=== PATIENT | male | born 1935 | race Caucasian/White ===

== ENCOUNTER 2018-12-02 09:41 | Emergency (ER) | payer MEDICARE, OTHER ==
[2018-12-02] MEDS ORDERED: Acetaminophen 325 MG Tab PO ONE (09:55)
[2018-12-02 09:58] VITALS: BP 118/54
--- NOTE | 2018-12-02 10:48 | CR ---
Clinical history: AP pelvis/hips and AP/frog lateral views of the right hip 83-year-old male with pain after fall. Interpretation: Abnormal. *Acute, mildly impacted but satisfactorily apposed and anatomically aligned intertrochanteric fracture proximal right femur. (See previous day CT exam) No indication pathologic lytic or blastic bone lesion, with fracture. No sign of other pelvic or contralateral left hip fracture. No hip joint dislocation.
--- NOTE | 2018-12-05 13:54 | ER ---
SUBJECTIVE: The patient is 83-year-old male who was at his normal baseline who tripped this morning outside in his snow boots and landed on his right hip. He comes in via the ambulance for evaluation for right hip pain. He denies hitting his head. No neck pain, chest pain, or back pain. No nausea or vomiting. No loss of consciousness. No upper extremity pain. He does take aspirin. He states he is otherwise at his baseline. Has no other complaints. PAST MEDICAL HISTORY: Significant for hypertension, hyperlipidemia, depression, OA, cardiovascular disease, and glaucoma. CURRENT MEDICATIONS: Include: 1. Aspirin 81 mg p.o. daily. 2. Meclizine 25 mg p.o. daily. 3. Multivitamin p.o. daily. 4. Nifedipine 30 mg p.o. daily. 5. Nitrostat 0.4 mg p.r.n. as directed. 6. PEG 400 eyedrops 1 drop both eyes daily. 7. Simvastatin 40 mg p.o. at bedtime. 8. Lexapro 10 mg p.o. daily. 9. Atenolol 1 tablet p.o. daily. 10.Refresh optic eyedrops, 1 drop both eyes daily. 11.Nepafenac, 1 drop both eyes as directed. 12.Ofloxacin, 1 drop both eyes as directed. 13.Prednisolone, 1 drop both eyes as directed. 14.Triamterene and hydrochlorothiazide (75-50), 1 tablet p.o. daily. ALLERGIES: He denies being allergic to known medications. SOCIAL HISTORY: No tobacco, alcohol, or substance abuse. REVIEW OF SYSTEMS: Fall this morning, landed on right hip, is somewhat tender. He is able to move his legs. No closed head injury, loss of consciousness. No neck pain, chest pain, back pain, shoulder pain, upper extremity pain. No vision changes. No nausea or vomiting. No bleeding. No bowel or bladder changes. Negative except the right hip pain. OBJECTIVE: Vitals Signs: Stable. He is afebrile. Blood pressure 118/54, heart rate 75, respiratory rate 16, and oxygen is 93% on room air. General: Pleasant. No distress. Nontoxic. Appropriate. Answers all questions. Comes in by ambulance. Appears very comfortable. HEENT: Normocephalic, atraumatic. Neck: Unremarkable. No signs of trauma. Back: Atraumatic, nontender. Chest: Atraumatic, nontender. Abdomen: Soft, benign. Extremities: Upper extremities are unremarkable. Lower extremities are also not remarkable with exception of some tenderness, nonspecific, right lateral hip area. No signs of bruising or bleeding. No shortening of the leg. No internal rotation. He has good pulses. An x-ray is obtained. It does show intertrochanteric fracture of the right hip. ASSESSMENT: 1. Fall. 2. Right intertrochanteric hip fracture. PLAN: Transfer to [facility] to the care of orthopedist, Dr. Cox. [facility] /[id number]
== END 2018-12-02 11:45 ==
LOC: DL.ED 09:41
DX: S72.141A Displaced intertrochanteric fracture of right femur, initial encounter for closed fracture (principal); I10 Essential (primary) hypertension; E78.5 Hyperlipidemia, unspecified; F32.9 Major depressive disorder, single episode, unspecified; Z79.899 Other long term (current) drug therapy; Z79.82 Long term (current) use of aspirin; W01.0XXA Fall on same level from slipping, tripping and stumbling without subsequent striking against object, initial encounter
CPT/HCPCS: 73502; 99285; A9270

== ENCOUNTER 2018-12-11 19:09 | Emergency (ER) | payer MEDICARE, OTHER ==
--- NOTE | 2018-12-11 19:20 | EDM.PDOC ---
ED HPI GENERAL MEDICAL PROBLEM - General Chief Complaint: Trauma Stated Complaint: RAPID HEART RATE Time Seen by Provider: 12/11/18 19:16 Source of Information: Reports: Patient, EMS History Limitations: Reports: No Limitations - History of Present Illness INITIAL COMMENTS - FREE TEXT/NARRATIVE: EMS called to pt fall with low BP. arrived @ scene pt alert coherent denying neck pain. C-collar placed upon arrival. pt states been blacking out alot c/o pain back of head denies neck pain. no CP/SOB at present. Dr Brasher contacted and more info obtained. Pt had right hip surgery 12-02 and H/H on 12-06% . code level II=DNR/DNI. TRAUMA NOTES ARRIVAL TIME: 1915 GSC ON ARRIVAL: 15 C-COLLAR PRESENT: placed in ER GCS @ 1 HOUR: 15 OFF SPINE BOARD: none PRIMARY SURVEY @: 1915 SECONDARY SURVEY @: 1999 C-SPINE CLEARED @: 1934 C-COLLAR REMOVED @: SC BY: [place] GSC ON DISCHARGE: 15 - Related Data Allergies Allergy/AdvReac Type Severity Reaction Status Date / Time No Known Allergies Allergy Verified 07/23/14 13:36 Home Meds: Home Meds Aspirin [Mane Chewable Aspirin] 81 mg PO DAILY 06/12/14 [History] Meclizine [Antivert] 25 mg PO DAILY 06/12/14 [History] Multivit-Min/FA/Lycopene/Lut [Centrum Silver] 1 tab PO DAILY 06/12/14 [History] NIFEdipine [Procardia XL] 30 mg PO DAILY 06/12/14 [History] Nitroglycerin [Nitrostat] 0.4 mg PO ASDIRECTED PRN 06/12/14 [History] PEG 400/Hypromellose/Glycerin [Eye Drop Tears] 1 drop EYEBOTH DAILY 06/12/14 [ History] Simvastatin [Zocor] 40 mg PO BEDTIME 06/12/14 [History] Escitalopram [Lexapro] 10 mg PO DAILY 07/24/14 [History] Atenolol [Tenormin] 1 tab PO DAILY 11/07/14 [History] Carboxymethylcellulos/Glycerin [Refresh Optive Eye Drops] 1 drop EYEBOTH DAILY 11/07/14 [History] Dextran 70/Hypromellose [Artificial Tears Eye Drops] 1 drop EYEBOTH ASDIRECTED PRN 11/07/14 [History] Nepafenac [[place] 0.1% Ophth Soln] 1 drop EYEBOTH ASDIRECTED 03/25/15 [History] Ofloxacin [Ocuflox 0.3% Ophth Soln] 1 drop EYEBOTH ASDIRECTED 03/25/15 [History] prednisoLONE Acetate [Prednisolone Acetate] 1 drop EYEBOTH ATDISCHARGE 03/25/15 [History] Triamterene/Hydrochlorothiazid [Triamterene-HCTZ 75-50 MG] 1 tab PO DAILY [History] Past Medical History HEENT History: Reports: Glaucoma Cardiovascular History: Reports: CAD, High Cholesterol, Hypertension Psychiatric History: Reports: Depression Social & Family History - Family History Family Medical History: Noncontributory - Living Situation & Occupation Living situation: Reports: Single Occupation: Retired Review of Systems - Review of Systems Review Of Systems: ROS reveals no pertinent complaints other than HPI. ED EXAM, GENERAL - Physical Exam Exam: See Below Exam Limited By: No Limitations General Appearance: Alert, WD/WN, No Apparent Distress Eye Exam: Bilateral Eye: PERRL (pupils ess ER @ 4mm) Ears: Hearing Grossly Normal Throat/Mouth: Normal Voice, No Airway Compromise Head: Other (occiput tender abrasion, no gross O/B) Neck: Other (placed in collar, pt did spont moved it without c/o.) Respiratory/Chest: No Respiratory Distress, Rhonchi Cardiovascular: Regular Rate, Rhythm GI/Abdominal: Soft, Non-Tender Extremities: Other (left tib old haematoma, NV wnl) Neurological: Alert, Oriented, Normal Cognition Psychiatric: Flat Affect Skin Exam: Warm, Dry, Normal Color Lymphatic: No Adenopathy Course - Vital Signs Last Recorded V/S: Last Vital Signs Temp 37.1 C 12/11/18 23:09 Pulse 117 H 12/11/18 23:09 Resp 22 H 12/11/18 23:09 BP 95/52 L 12/11/18 23:09 Pulse Ox 92 L 12/11/18 23:09 - Orders/Labs/Meds Orders: Active Orders 24 hr Category Date Time Status EKG 12 Lead [EKG Documentation Completion] [RC] STAT Care 12/11/18 19:06 Active RED BLOOD CELLS LP [BBK] Stat Lab 12/11/18 19:30 Received TYPE AND SCREEN [BBK] Stat Lab 12/11/18 22:48 Ordered Sodium Chloride 0.9% [Normal Saline] 1,000 ml Med 12/11/18 23:03 Active IV .BOLUS Transfuse RBC [Transfuse Red Blood Cells] [COMM] Stat Oth 12/11/18 22:48 Ordered Medication Orders Sodium Chloride (Normal Saline) 1,000 mls @ 999 mls/hr IV .BOLUS ONE Stop: 12/12/18 00:03 Last Admin: 12/11/18 23:07 Dose: 999 mls/hr Labs: Laboratory Tests 12/11/18 12/11/18 12/11/18 Range/Units 19:14 19:30 19:30 WBC 12.4 H (5.0-10.0) 10^3/uL RBC 2.12 L (4.6-6.2) 10^6/uL Hgb 6.3 L* D (14.0-18.0) g/dL Hct 20.4 L* (40.0-54.0) % MCV 96.2 D (80-100) fL MCH 29.7 (27.0-34.0) pg MCHC 30.9 L (33.0-35.0) g/dL Plt Count 375 (150-450) 10^3/uL Neut % (Auto) 79.3 H (42.2-75.2) % Lymph % (Auto) 14.4 L (20.5-50.1) % [place] % (Auto) 5.6 (2-8) % Eos % (Auto) 0.5 L (1.0-3.0) % Baso % (Auto) 0.2 (0.0-1.0) % Add Manual Diff Yes Neutrophils % (Manual) 81 H (42-75) % Band Neutrophils % 6 % Lymphocytes % (Manual) 7 L (20-50) % Atypical Lymphs % 0 % Monocytes % (Manual) 4 (2-8) % Eosinophils % (Manual) 2 (1-3) % Basophils % (Manual) 0 Hypochromasia 2+ moderate Anisocytosis 2+ moderate PT (9.0-12.0) SEC INR (0.9-1.2) D-Dimer, Quantitative (0-400) ng/mL Sodium 137 (135-145) mmol/L Potassium 5.1 H (3.6-5.0) mmol/L Chloride 105 (101-111) mmol/L Carbon Dioxide 20.0 L (21.0-31.0) mmol/L Anion Gap 17.1 BUN 69 H D (7-18) mg/dL Creatinine 1.4 H (0.6-1.3) mg/dL Est Cr Clr Drug Dosing TNP Estimated GFR (MDRD) 49 BUN/Creatinine Ratio 49.28 Glucose 241 H (74-105) mg/dL POC Glucose 233 H (83-110) mg/dl Calcium 7.9 L (8.4-10.2) mg/dl Total Bilirubin 0.9 (0.2-1.0) mg/dL AST 37 (10-42) IU/L ALT 32 (10-60) IU/L Alkaline Phosphatase 86 (42-121) IU/L Troponin I < 0.02 (0.00-0.02) ng/ml Total Protein 4.9 L (6.7-8.2) g/dl Albumin 2.3 L (3.2-5.5) g/dl Globulin 2.6 Albumin/Globulin Ratio 0.88 12/11/18 12/11/18 Range/Units 19:30 19:30 WBC (5.0-10.0) 10^3/uL RBC (4.6-6.2) 10^6/uL Hgb (14.0-18.0) g/dL Hct (40.0-54.0) % MCV (80-100) fL MCH (27.0-34.0) pg MCHC (33.0-35.0) g/dL Plt Count (150-450) 10^3/uL Neut % (Auto) (42.2-75.2) % Lymph % (Auto) (20.5-50.1) % [place] % (Auto) (2-8) % Eos % (Auto) (1.0-3.0) % Baso % (Auto) (0.0-1.0) % Add Manual Diff Neutrophils % (Manual) (42-75) % Band Neutrophils % % Lymphocytes % (Manual) (20-50) % Atypical Lymphs % % Monocytes % (Manual) (2-8) % Eosinophils % (Manual) (1-3) % Basophils % (Manual) Hypochromasia Anisocytosis PT 12.0 (9.0-12.0) SEC INR 1.2 (0.9-1.2) D-Dimer, Quantitative 3650 H (0-400) ng/mL Sodium (135-145) mmol/L Potassium (3.6-5.0) mmol/L Chloride (101-111) mmol/L Carbon Dioxide (21.0-31.0) mmol/L Anion Gap BUN (7-18) mg/dL Creatinine (0.6-1.3) mg/dL Est Cr Clr Drug Dosing Estimated GFR (MDRD) BUN/Creatinine Ratio Glucose (74-105) mg/dL POC Glucose (83-110) mg/dl Calcium (8.4-10.2) mg/dl Total Bilirubin (0.2-1.0) mg/dL AST (10-42) IU/L ALT (10-60) IU/L Alkaline Phosphatase (42-121) IU/L Troponin I (0.00-0.02) ng/ml Total Protein (6.7-8.2) g/dl Albumin (3.2-5.5) g/dl Globulin Albumin/Globulin Ratio Meds: Medications Generic Name Dose Route Start Last Admin Trade Name Freq PRN Reason Stop Dose Admin Sodium Chloride 1,000 mls @ 999 mls/hr 12/11/18 23:03 12/11/18 23:07 Normal Saline IV 12/12/18 00:03 999 mls/hr .BOLUS ONE Administration Discontinued Medications Generic Name Dose Route Start Last Admin Trade Name Freq PRN Reason Stop Dose Admin Ondansetron HCl 4 mg 12/11/18 21:51 12/11/18 22:01 Zofran IV 12/11/18 21:52 4 mg ONETIME ONE Administration Ondansetron HCl 4 mg 12/11/18 23:00 12/11/18 23:06 Zofran IV 12/11/18 23:01 4 mg ONETIME ONE Administration Pantoprazole Sodium 80 mg 12/11/18 22:46 12/11/18 22:58 Protonix Iv IVPUSH 12/11/18 22:47 80 mg .BOLUS ONE Administration - Re-Assessments/Exams Free Text/Narrative Re-Assessment/Exam: 12/11/18 22:45 re-exam; pt vomited blood. 12/11/18 23:[address] [facility]is [facility] who kindly accepted pt Departure - Departure Time of Disposition: 23:15 Disposition: DC/Tfer to Acute Hospital 02 Condition: Poor Clinical Impression: Low hemoglobin, Elevated d-dimer, Status post hip surgery GI bleed Qualifiers: GI bleed type/associated pathology: unspecified gastrointestinal hemorrhage type Qualified Code(s): K92.2 - Gastrointestinal hemorrhage, unspecified Head injury Qualifiers: Encounter type: initial encounter Qualified Code(s): S09.90XA - Unspecified injury of head, initial encounter - Discharge Information Forms: Interfacility Transfer EMTALA - My Orders Last 24 Hours: My Active Orders 12/11/18 19:06 EKG 12 Lead [EKG Documentation Completion] [RC] STAT 12/11/18 19:30 RED BLOOD CELLS LP [BBK] Stat 12/11/18 22:48 TYPE AND SCREEN [BBK] Stat Transfuse RBC [Transfuse Red Blood Cells] [COMM] Stat 12/11/18 23:03 Sodium Chloride 0.9% [Normal Saline] 1,000 ml IV .BOLUS - Assessment/Plan Last 24 Hours: My Active Orders 12/11/18 19:06 EKG 12 Lead [EKG Documentation Completion] [RC] STAT 12/11/18 19:30 RED BLOOD CELLS LP [BBK] Stat 12/11/18 22:48 TYPE AND SCREEN [BBK] Stat Transfuse RBC [Transfuse Red Blood Cells] [COMM] Stat 12/11/18 23:03 Sodium Chloride 0.9% [Normal Saline] 1,000 ml IV .BOLUS
[2018-12-11 19:56] LABS: ANION GAP 17.1; CHLORIDE,CL 105 mmol/L (101-111); SODIUM,NA 137 mmol/L (135-145)
[2018-12-11] MEDS ORDERED: Ondansetron 4 MG/2 ML SDV IV ONE ×2 (21:51→23:00)
[2018-12-11] MEDS ORDERED: Pantoprazole 40 MG Vial IVPUSH ONE (22:46)
[2018-12-11] MEDS ORDERED: Sodium Chloride 0.9% 1,000 ML IV ONE (23:03)
[2018-12-12 00:20] VITALS: BP 92/44
== END 2018-12-12 00:25 ==
LOC: DL.ED 19:09
DX: K92.2 Gastrointestinal hemorrhage, unspecified (principal); S00.01XA Abrasion of scalp, initial encounter; S09.90XA Unspecified injury of head, initial encounter; I25.10 Atherosclerotic heart disease of native coronary artery without angina pectoris; E78.00 Pure hypercholesterolemia, unspecified; I10 Essential (primary) hypertension; F32.9 Major depressive disorder, single episode, unspecified; R79.1 Abnormal coagulation profile; Z98.890 Other specified postprocedural states; Z79.82 Long term (current) use of aspirin; Z79.899 Other long term (current) drug therapy; W18.30XA Fall on same level, unspecified, initial encounter
CPT/HCPCS: 36415; 36430; 70450; 71045; 72125; 80053; 82962; 84484; 85025; 85379; 85610; 86850; 86900; 86901; 86920; 86922; 93005; 93970; 96361; 96374; 96375; 96376; 99285; C9113; J2405; J7030; P9016

== ENCOUNTER 2019-06-18 07:06 | Emergency (ER) | payer MEDICARE, OTHER ==
--- NOTE | 2019-06-18 07:17 | EDM.PDOC ---
"ED HPI GENERAL MEDICAL PROBLEM - General Chief Complaint: Lower Extremity Injury/Pain Stated Complaint: AMBULANCE Time Seen by Provider: 06/18/19 07:17 Source of Information: Reports: Patient, EMS, Old Records, RN, RN Notes Reviewed History Limitations: Reports: No Limitations - History of Present Illness INITIAL COMMENTS - FREE TEXT/NARRATIVE: Pt arrives to ER from the [facility] with c/o severe pain in the left hip area. Pt states he woke with the pain this morning and denies any recent falls, injury, fevers, dysuria, or abdominal pain. He describes the pain as a severe constant ache in the left hip from the low back and left buttock and radiates to the knee. Onset: Today Duration: Constant Location: Reports: Back, Upper Extremity, Left Quality: Reports: Ache Severity: Severe Improves with: Reports: None Worsens with: Reports: Movement Context: Denies: Activity, Trauma Associated Symptoms: Reports: No Other Symptoms Left Hip Pain Score (Numeric/FACES): 10 - Related Data Allergies Allergy/AdvReac Type Severity Reaction Status Date / Time No Known Allergies Allergy Verified 06/18/19 07:41 Home Meds: Home Meds Aspirin [Mane Chewable Aspirin] 81 mg PO DAILY 06/12/14 [History] Meclizine [Antivert] 25 mg PO DAILY 06/12/14 [History] Multivit-Min/FA/Lycopene/Lut [Centrum Silver] 1 tab PO DAILY 06/12/14 [History] Nitroglycerin [Nitrostat] 0.4 mg PO ASDIRECTED PRN 06/12/14 [History] PEG 400/Hypromellose/Glycerin [Eye Drop Tears] 1 drop EYEBOTH DAILY 06/12/14 [ History] Simvastatin [Zocor] 40 mg PO BEDTIME 06/12/14 [History] Omeprazole 20 mg PO DAILY 06/18/19 [History] Potassium Chloride [Klor-Con M20] 20 meq PO BID 06/18/19 [History] Sertraline [Zoloft] 25 mg PO DAILY 06/18/19 [History] Past Medical History HEENT History: Reports: Glaucoma Cardiovascular History: Reports: CAD, High Cholesterol, Hypertension Gastrointestinal History: Reports: GI Bleed Musculoskeletal History: Reports: Arthritis, Fracture (Right hip) Psychiatric History: Reports: Depression - Past Surgical History GI Surgical History: Reports: EGD Musculoskeletal Surgical History: Reports: Hip Replacement (Right) Social & Family History - Family History Family Medical History: Noncontributory - Living Situation & Occupation Living situation: Reports: Single Occupation: Retired Review of Systems - Review of Systems Review Of Systems: ROS reveals no pertinent complaints other than HPI. ED EXAM, GENERAL - Physical Exam Exam: See Below Exam Limited By: No Limitations General Appearance: Alert, No Apparent Distress, Other (Frail elderly appearin male) Eye Exam: Bilateral Eye: Normal Inspection Nose: Normal Inspection Throat/Mouth: Normal Inspection Head: Atraumatic, Normocephalic Neck: Normal Inspection, Full Range of Motion Respiratory/Chest: No Respiratory Distress, Lungs Clear, No Accessory Muscle Use , Chest Non-Tender, Decreased Breath Sounds Cardiovascular: Regular Rate, Rhythm, No Edema, Other (See steam box hand of pedal pulses/doppler.) GI/Abdominal: Normal Bowel Sounds, Soft, Non-Tender, No Distention Back Exam: Decreased Range of Motion (lumbar, chronic/stable per pt), Paraspinal Tenderness (mild a lumbar). No: CVA Tenderness (L), CVA Tenderness ( R), Vertebral Tenderness Extremities: No Pedal Edema, Normal Capillary Refill, Leg Pain (Left hip, thigh , knee with no visible swelling, bruising, erythema, increased warmth, or deformity. The skin is intact.), Limited Range of Motion (Left hip and knee.). No: Joint Swelling, Frances's Sign, Mottled, Pallor Neurological: Alert, Oriented, CN II-XII Intact, Normal Cognition, No Motor/ Sensory Deficits Psychiatric: Normal Affect, Normal Mood Skin Exam: Warm, Dry, Intact, Normal Color, No Rash Course - Vital Signs Last Recorded V/S: Last Vital Signs Temp 99.4 F 06/18/19 08:26 Pulse 93 06/18/19 08:26 Resp 20 06/18/19 08:26 BP 151/64 H 06/18/19 08:26 Pulse Ox 95 06/18/19 08:26 - Orders/Labs/Meds Orders: Active Orders 24 hr Category Date Time Status Knee 3V Lt [CR] Urgent Exams 06/18/19 07:21 Taken Lumbar Spine wo Cont [CT] Urgent Exams 06/18/19 07:22 Taken Pelvis wo Cont [CT] Urgent Exams 06/18/19 07:22 Taken Meds: Medications Discontinued Medications Generic Name Dose Route Start Last Admin Trade Name Merry PRN Reason Stop Dose Admin Hydrocodone Bitart/Acetaminophen 1 tab 06/18/19 07:20 06/18/19 07:28 [place] 325-5 Mg PO 06/18/19 07:21 1 tab ONETIME ONE Administration - Radiology Interpretation Free Text/Narrative:: [facility] Final Radiology Report Call: [phone] assistance Online chat: [email or web address] Name: ASIYA WRIGHT Age: 83Years M Date: 06/18/2019 SSN: -- : [id number] Study: XR KNEE 3 VIEWS LEFT Requesting Physician: EMILE IZQUIERDO Images: [id number] Addl Studies: Provided Clinical History: Contrast: Contrast Medium: Contrast Amount: Contrast Method: CONFIDENTIALITY STATEMENT This report is intended only for use by the referring physician, and only in accordance with law. If you received this in error, call [phone]. Page 1 of 1 PROCEDURE INFORMATION: Exam: XR Left Knee Exam date and time: 06/18/2019 7:36 AM Clinical history: 83 years old, male; Pain; Knee; Left TECHNIQUE: Imaging protocol: XR Left knee. Views: 3 views. COMPARISON: No relevant prior studies available. FINDINGS: Bones/joints: There is tricompartmental arthritic changes as manifested by joint space narrowing and marginal osteophytes. The most severe narrowing is at the medial joint compartment of the knee. Chondrocalcinosis of the lateral meniscus. Soft tissues: Multiple surgical clips Vasculature: The vasculature demonstrates diffuse moderate atherosclerotic calcification. IMPRESSION: 1. There is tricompartmental arthritic changes as manifested by joint space narrowing and marginal osteophytes. 2. Chondrocalcinosis of the lateral meniscus. Thank you for allowing us to participate in the care of your patient. Dictated and Authenticated by: Jason Chan MD 06/18/2019 8:29 AM Central Time ([place] & [place]) [facility] Final Radiology Report Call: [phone] assistance Online chat: [email or web address] Name: ASIYA WRIGHT Age: 83Years M Date: 06/18/2019 SSN: -- : [id number] Study: CT SPINE LUMBAR WO Requesting Physician: EMILE IZQUIERDO Images: [id number] Addl Studies: Provided Clinical History: Contrast: Without Contrast Medium: Contrast Amount: Contrast Method: Page 1 of 2 PROCEDURE INFORMATION: Exam: CT Lumbar Spine Without Contrast Exam date and time: 06/18/2019 7:34 AM Clinical history: 83 years old, male; Low back pain TECHNIQUE: Imaging protocol: Computed tomography images of the lumbar spine without contrast. Radiation optimization: All CT scans at this facility use at least one of these dose optimization techniques: automated exposure control; mA and/or kV adjustment per patient size (includes targeted exams where dose is matched to clinical indication); or iterative reconstruction. COMPARISON: No relevant prior studies available. FINDINGS: Vertebrae: Superior endplate compression fracture at the L1 vertebra with loss of 30% of the height of this vertebra. Grade 1 retrolisthesis of L2 on L3. A Discs/Spinal canal/Neural foramina: Severe narrowing of the L2-L3 and L4-5 disc spaces with near-total loss of the disc spaces. Moderate to severe narrowing of the L3-L4 disc space with associated vacuum phenomena. Bilateral neuroforaminal narrowing. No disc protrusion or extrusion appreciated. Gallbladder and bile ducts: The patient is status post cholecystectomy. Vasculature: The vasculature demonstrates diffuse moderate atherosclerotic calcification. Soft tissues: Unremarkable. IMPRESSION: 1. Superior endplate compression fracture at the L1 vertebra with loss of 30% of the height of this vertebra. 2. Severe narrowing of the L2-L3 and L4-5 disc spaces with near-total loss of the disc spaces. 3. Moderate to severe narrowing of the L3-L4 disc space with associated vacuum phenomena. ASIYA WRIGHT | Final Radiology Report CONFIDENTIALITY STATEMENT This report is intended only for use by the referring physician, and only in accordance with law. If you received this in error, call [phone]. Page 2 of 2 4. No disc protrusion or extrusion appreciated. Thank you for allowing us to participate in the care of your patient. Dictated and Authenticated by: Jason Chan MD 06/18/2019 8:34 AM Central Time ([place] & [place]) [facility] Final Radiology Report Call: [phone] assistance Online chat: [email or web address] Name: ASIYA WRIGHT Age: 83Years M Date: 06/18/2019 SSN: -- : [id number] Study: CT PELVIS WO Requesting Physician: EMILE IZQUIERDO Images: [id number] Addl Studies: Provided Clinical History: Contrast: Without Contrast Medium: Contrast Amount: Contrast Method: Page 1 of 2 PROCEDURE INFORMATION: Exam: CT Pelvis without contrast; Skeletal Exam date and time: 06/18/2019 7:34 AM Clinical history: 83 years old, male; Pelvic pain TECHNIQUE: Imaging protocol: Computed tomography images of the pelvis without contrast. Exam focused on the skeletal structures. Radiation optimization: All CT scans at this facility use at least one of these dose optimization techniques: automated exposure control; mA and/or kV adjustment per patient size (includes targeted exams where dose is matched to clinical indication); or iterative reconstruction. COMPARISON: No relevant prior studies available. FINDINGS: Vasculature: The vasculature demonstrates diffuse moderate atherosclerotic calcification. Bones/joints: There is evidence of degenerative disc disease at the lower lumbar spine. Mild degenerative changes at the SI joints bilaterally. Status post right proximal femoral ORIF. No significant narrowing of the hip joint space. No large marginal osteophytes or subchondral cystic changes are present. No displaced fracture or dislocation. Soft tissues: Unremarkable. IMPRESSION: 1. No acute findings 2. Mild degenerative changes at the SI joints bilaterally. Thank you for allowing us to participate in the care of your patient. Dictated and Authenticated by: Jason Chan MD ASIYA WRIGHT | Final Radiology Report CONFIDENTIALITY STATEMENT This report is intended only for use by the referring physician, and only in accordance with law. If you received this in error, call [phone]. Page 2 of 2 06/18/2019 8:36 AM Central Time ([place] & [place]) - Re-Assessments/Exams Free Text/Narrative Re-Assessment/Exam: 06/18/19 08:54 I do not think the L1 compression fracture is acute, as the pt denies any recent falls or injuries, and is non-tender overlying the L1 region to palpation. He did have a fall back in November of 2018 resulting in a right hip fracture, and may have sustained a compression fracture at that or some other time. Departure - Departure Time of Disposition: 08:56 Disposition: Home, Self-Care 01 Condition: Fair Clinical Impression: Acute left lumbar radiculopathy, Tricompartment osteoarthritis of left knee, DDD (degenerative disc disease), lumbar Closed compression fracture of L1 vertebra Qualifiers: Encounter type: sequela Qualified Code(s): S32.010S - Wedge compression fracture of first lumbar vertebra, sequela - Discharge Information *PRESCRIPTION DRUG MONITORING PROGRAM REVIEWED*: No *COPY OF PRESCRIPTION DRUG MONITORING REPORT IN PATIENT GLORIA: No Instructions: Lumbosacral Radiculopathy, Osteoarthritis, Spinal Compression Fracture Forms: ED Department Discharge Additional Instructions: Rx: Hydrocodone APAP 5mg/325mg *Drink plenty of water or juice, and use a stool softener or prunes to avoid constipation while taking the pain medication. Rx: Decadron 4mg Use a walker. Follow up in clinic with your primary doctor this week for recheck. - My Orders Last 24 Hours: My Active Orders 06/18/19 07:21 Knee 3V Lt [CR] Urgent 06/18/19 07:22 Lumbar Spine wo Cont [CT] Urgent Pelvis wo Cont [CT] Urgent - Assessment/Plan Last 24 Hours: My Active Orders 06/18/19 07:21 Knee 3V Lt [CR] Urgent 06/18/19 07:22 Lumbar Spine wo Cont [CT] Urgent Pelvis wo Cont [CT] Urgent"
[2019-06-18] MEDS ORDERED: Acetaminophen/HYDROcodone 325-5 MG Tab PO ONE (07:20)
[2019-06-18 08:27] VITALS: BP 151/64; PULSE 93
[2019-06-18] MEDS ORDERED: Dexamethasone 4 MG Tab PO ONE (08:57)
== END 2019-06-18 09:28 | disposition home or self-care (01) ==
LOC: DL.ED 07:06
DX: M51.16 Intervertebral disc disorders with radiculopathy, lumbar region (principal); M17.12 Unilateral primary osteoarthritis, left knee; M48.56XA Collapsed vertebra, not elsewhere classified, lumbar region, initial encounter for fracture; F32.9 Major depressive disorder, single episode, unspecified; I10 Essential (primary) hypertension; E78.00 Pure hypercholesterolemia, unspecified; H40.9 Unspecified glaucoma; I25.10 Atherosclerotic heart disease of native coronary artery without angina pectoris; Z79.899 Other long term (current) drug therapy; Z79.82 Long term (current) use of aspirin
CPT/HCPCS: 72131; 72192; 73562; 99284; A9270; J8540

== ENCOUNTER 2019-09-07 17:50 | Emergency (ER) | payer MEDICARE, OTHER ==
[2019-09-07] MEDS ORDERED: Sodium Chloride 0.9% 10 ML Syringe FLUSH PRN (17:57)
[2019-09-07 18:06] VITALS: BP 188/74; PULSE 87
--- NOTE | 2019-09-07 18:18 | EDM.PDOC ---
<Bree Corbin - Last Filed: 09/07/19 19:11> ED HPI GENERAL MEDICAL PROBLEM - General Chief Complaint: General Stated Complaint: UNKNOWN Time Seen by Provider: 09/07/19 18:18 Source of Information: Reports: Patient, Family, RN, RN Notes Reviewed History Limitations: Reports: Altered Mental Status - History of Present Illness INITIAL COMMENTS - FREE TEXT/NARRATIVE: patient presents to ER from assisted living where he lives with his spouse. Patient brought to the ER by his grand daughter. Granddaughter states the patient has been increasingly confused with today being the worst. granddaughter states the patient has not been himself since Wednesday. Granddaughter states the patient was seen by his primary care provider on Wednesday , and she thinks the liver enzymes were elevated at that time. Patient was referred to see GI, but appointment is not until September. Patient states he has somewhat of a headache at this time. Patient alert, oriented to person, place, month but not year or president. Onset: Gradual - Related Data Allergies Allergy/AdvReac Type Severity Reaction Status Date / Time No Known Allergies Allergy Verified 06/18/19 07:41 Home Meds: Home Meds Aspirin [Mane Chewable Aspirin] 81 mg PO DAILY 06/12/14 [History] Meclizine [Antivert] 25 mg PO DAILY 06/12/14 [History] Multivit-Min/FA/Lycopene/Lut [Centrum Silver] 1 tab PO DAILY 06/12/14 [History] Nitroglycerin [Nitrostat] 0.4 mg PO ASDIRECTED PRN 06/12/14 [History] PEG 400/Hypromellose/Glycerin [Eye Drop Tears] 1 drop EYEBOTH DAILY 06/12/14 [ History] Simvastatin [Zocor] 40 mg PO BEDTIME 06/12/14 [History] Omeprazole 20 mg PO DAILY 06/18/19 [History] Potassium Chloride [Klor-Con M20] 20 meq PO BID 06/18/19 [History] Sertraline [Zoloft] 25 mg PO DAILY 06/18/19 [History] Past Medical History HEENT History: Reports: Glaucoma Cardiovascular History: Reports: CAD, High Cholesterol, Hypertension Gastrointestinal History: Reports: GI Bleed Genitourinary History: Reports: Chronic Renal Insuffiency Musculoskeletal History: Reports: Arthritis, Fracture Psychiatric History: Reports: Depression Endocrine/Metabolic History: Reports: Other (See Below) Other Endocrine/Metabolic History: neuroendocrine carcinoma of the pancreas Oncologic (Cancer) History: Reports: Pancreatic, Prostate - Past Surgical History GI Surgical History: Reports: EGD Musculoskeletal Surgical History: Reports: Hip Replacement Social & Family History - Family History Family Medical History: Noncontributory - Tobacco Use Smoking Status *Q: Never Smoker - Caffeine Use Caffeine Use: Reports: None - Recreational Drug Use Recreational Drug Use: No - Living Situation & Occupation Living situation: Reports: Single Occupation: Retired ED ROS GENERAL - Review of Systems Review Of Systems: Comprehensive ROS is negative, except as noted in HPI. ED EXAM, GENERAL - Physical Exam Exam: See Below Exam Limited By: Altered Mental Status General Appearance: Alert, WD/WN, No Apparent Distress Eye Exam: Bilateral Eye: EOMI, Normal Inspection Ears: Normal External Exam, Hearing Grossly Normal Nose: Normal Inspection Throat/Mouth: Normal Inspection, Normal Voice, No Airway Compromise Head: Atraumatic, Normocephalic Neck: Normal Inspection, Supple, Non-Tender, Full Range of Motion Respiratory/Chest: No Respiratory Distress, Normal Breath Sounds, No Accessory Muscle Use, Chest Non-Tender, Crackles (left base) Cardiovascular: Normal Peripheral Pulses, Regular Rate, Rhythm, No Edema, No Gallop, No JVD, No Murmur, No Rub Peripheral Pulses: 2+: Radial (L), Radial (R) GI/Abdominal: Normal Bowel Sounds, Non-Tender, Distended (Male) Exam: Deferred Rectal (Males) Exam: Deferred Back Exam: Normal Inspection, Full Range of Motion, NT Extremities: Normal Inspection, Normal Range of Motion, Non-Tender, Normal Capillary Refill, No Pedal Edema Neurological: Alert, CN II-XII Intact, No Motor/Sensory Deficits, Disoriented, Memory Loss Recent Events Psychiatric: Normal Affect, Normal Mood Skin Exam: Warm, Dry, Intact, Normal Color, No Rash Lymphatic: No Adenopathy Course - Vital Signs Last Recorded V/S: Last Vital Signs Temp 37.3 C 09/07/19 17:57 Pulse 87 09/07/19 17:57 Resp 18 09/07/19 17:57 BP 188/74 H 09/07/19 17:57 Pulse Ox 99 09/07/19 17:57 - Orders/Labs/Meds Orders: Active Orders 24 hr Category Date Time Status Peripheral IV Care [RC] . DIRECTED Care 09/07/19 17:57 Active Sodium Chloride 0.9% [Saline Flush] Med 09/07/19 17:57 Active 10 ml FLUSH ASDIRECTED PRN Peripheral IV Insertion Adult [OM.PC] Stat Oth 09/07/19 17:56 Ordered Medication Orders Sodium Chloride (Saline Flush) 10 ml FLUSH ASDIRECTED PRN PRN Reason: Keep Vein Open Last Admin: 09/07/19 18:33 Dose: 10 ml Labs: Laboratory Tests 09/07/19 09/07/19 09/07/19 Range/Units 18:05 18:05 18:05 WBC 13.0 H (5.0-10.0) 10^3/uL RBC 4.32 L (4.6-6.2) 10^6/uL Hgb 12.6 L D (14.0-18.0) g/dL Hct 38.2 L (40.0-54.0) % MCV 88.4 D (80-100) fL MCH 29.2 (27.0-34.0) pg MCHC 33.0 (33.0-35.0) g/dL Plt Count 264 D (150-450) 10^3/uL Neut % (Auto) 81.6 H (42.2-75.2) % Lymph % (Auto) 7.3 L (20.5-50.1) % [place] % (Auto) 9.3 H (2-8) % Eos % (Auto) 1.6 (1.0-3.0) % Baso % (Auto) 0.2 (0.0-1.0) % PT 11.6 (9.0-12.0) SEC INR 1.1 (0.9-1.2) Sodium 130 L (135-145) mmol/L Potassium 3.9 (3.6-5.0) mmol/L Chloride 96 L (101-111) mmol/L Carbon Dioxide 25.0 (21.0-31.0) mmol/L Anion Gap 12.9 BUN 23 H D (7-18) mg/dL Creatinine 0.8 (0.6-1.3) mg/dL Est Cr Clr Drug Dosing 54.55 mL/min Estimated GFR (MDRD) > 60 BUN/Creatinine Ratio 28.75 Glucose 179 H (74-105) mg/dL Calcium 8.5 (8.4-10.2) mg/dl Total Bilirubin 0.7 (0.2-1.0) mg/dL AST 24 (10-42) IU/L ALT 31 (10-60) IU/L Alkaline Phosphatase 429 H (42-121) IU/L Ammonia (11-35) umol/L Total Protein 6.5 L (6.7-8.2) g/dl Albumin 3.5 (3.2-5.5) g/dl Globulin 3.0 Albumin/Globulin Ratio 1.17 Amylase 85 (28-100) U/L Lipase 86 H (22-51) U/L Urine Color (YELLOW) Urine Appearance (CLEAR) Urine pH (5.0-9.0) Ur Specific [place] (1.005-1.030) Urine Protein (NEGATIVE) Urine Glucose (UA) (NEGATIVE) Urine Ketones (NEGATIVE) Urine Occult Blood (NEGATIVE) Urine Nitrite (NEGATIVE) Urine Bilirubin (NEGATIVE) Urine Urobilinogen (0.2-1.0) mg/dL Ur Leukocyte Esterase (NEGATIVE) Urine RBC /HPF Urine WBC (0-5/HPF) /HPF Ur Epithelial Cells (NOT SEEN) /HPF Urine Bacteria (0-FEW/HPF) /HPF Urine Mucus (NOT SEEN) /LPF 09/07/19 09/07/19 Range/Units 18:05 19:56 WBC (5.0-10.0) 10^3/uL RBC (4.6-6.2) 10^6/uL Hgb (14.0-18.0) g/dL Hct (40.0-54.0) % MCV (80-100) fL MCH (27.0-34.0) pg MCHC (33.0-35.0) g/dL Plt Count (150-450) 10^3/uL Neut % (Auto) (42.2-75.2) % Lymph % (Auto) (20.5-50.1) % [place] % (Auto) (2-8) % Eos % (Auto) (1.0-3.0) % Baso % (Auto) (0.0-1.0) % PT (9.0-12.0) SEC INR (0.9-1.2) Sodium (135-145) mmol/L Potassium (3.6-5.0) mmol/L Chloride (101-111) mmol/L Carbon Dioxide (21.0-31.0) mmol/L Anion Gap BUN (7-18) mg/dL Creatinine (0.6-1.3) mg/dL Est Cr Clr Drug Dosing mL/min Estimated GFR (MDRD) BUN/Creatinine Ratio Glucose (74-105) mg/dL Calcium (8.4-10.2) mg/dl Total Bilirubin (0.2-1.0) mg/dL AST (10-42) IU/L ALT (10-60) IU/L Alkaline Phosphatase (42-121) IU/L Ammonia 29 (11-35) umol/L Total Protein (6.7-8.2) g/dl Albumin (3.2-5.5) g/dl Globulin Albumin/Globulin Ratio Amylase (28-100) U/L Lipase (22-51) U/L Urine Color Yellow (YELLOW) Urine Appearance Slightly cloudy (CLEAR) Urine pH 5.5 (5.0-9.0) Ur Specific [place] 1.025 (1.005-1.030) Urine Protein Trace H (NEGATIVE) Urine Glucose (UA) Negative (NEGATIVE) Urine Ketones Negative (NEGATIVE) Urine Occult Blood Moderate H (NEGATIVE) Urine Nitrite Negative (NEGATIVE) Urine Bilirubin Negative (NEGATIVE) Urine Urobilinogen 0.2 (0.2-1.0) mg/dL Ur Leukocyte Esterase Negative (NEGATIVE) Urine RBC 75-100 H /HPF Urine WBC 0-5 (0-5/HPF) /HPF Ur Epithelial Cells Rare (NOT SEEN) /HPF Urine Bacteria Rare (0-FEW/HPF) /HPF Urine Mucus Rare (NOT SEEN) /LPF Meds: Medications Generic Name Dose Route Start Last Admin Trade Name Freq PRN Reason Stop Dose Admin Sodium Chloride 10 ml 09/07/19 17:57 09/07/19 18:33 Saline Flush FLUSH 10 ml ASDIRECTED PRN Administration Keep Vein Open Discontinued Medications Generic Name Dose Route Start Last Admin Trade Name Freq PRN Reason Stop Dose Admin Iopamidol 100 ml 09/07/19 18:46 09/07/19 19:44 Isovue-300 (61%) IVPUSH 09/07/19 18:47 75 ml ONETIME ONE Administration Departure - Departure Disposition: DC/Tfer to [facility] 02 Clinical Impression: Confusion, Khoa's syndrome Leukocytosis, unspecified Qualifiers: Leukocytosis type: other Qualified Code(s): D72.828 - Other elevated white blood cell count - Discharge Information Forms: Interfacility Transfer EMTALA Sepsis Event Note - Evaluation Sepsis Screening Result: No Definite Risk - Focused Exam Vital Signs: Vital Signs Temp Pulse Resp BP Pulse Ox 09/07/19 17:57 37.3 C 87 18 188/74 H 99 Date Exam was Performed: 09/07/19 Time Exam was Performed: 19:11 <Jesse Woodson - Last Filed: 09/07/19 21:33> Course - Re-Assessments/Exams Free Text/Narrative Re-Assessment/Exam: 09/07/19 21:[address] Nolasco @ who kindly accepted pt. Departure - Departure Time of Disposition: 21:30 Condition: Fair Sepsis Event Note - Focused Exam Date Exam was Performed: 09/07/19 Time Exam was Performed: 21:29
[2019-09-07 18:32] LABS: ANION GAP 12.9; CHLORIDE,CL 96 mmol/L (101-111); SODIUM,NA 130 mmol/L (135-145)
[2019-09-07] MEDS ORDERED: Iopamidol 612 MG/ML 100 ML Bottle IVPUSH ONE (18:46)
== END 2019-09-07 22:45 ==
LOC: DL.ED 17:50
DX: K56.699 Other intestinal obstruction unspecified as to partial versus complete obstruction (principal); D72.828 Other elevated white blood cell count; R41.0 Disorientation, unspecified; I12.9 Hypertensive chronic kidney disease with stage 1 through stage 4 chronic kidney disease, or unspecified chronic kidney disease; N18.9 Chronic kidney disease, unspecified; Z79.82 Long term (current) use of aspirin
CPT/HCPCS: 36415; 70450; 74177; 80053; 81001; 82140; 82150; 83690; 85025; 85610; 99284; 99285-25; Q9967

== ENCOUNTER 2021-02-09 19:10 | Emergency (ER) | payer MEDICARE, OTHER ==
[2021-02-09] MEDS ORDERED: Sodium Chloride 0.9% 10 ML Syringe FLUSH PRN (19:26)
--- NOTE | 2021-02-09 19:49 | EDM.PDOC ---
ED HPI GENERAL MEDICAL PROBLEM - General Chief Complaint: Head Injury Stated Complaint: FELL HIT HIS HEAD Time Seen by Provider: 02/09/21 19:30 Source of Information: Reports: Patient History Limitations: Reports: No Limitations - History of Present Illness INITIAL COMMENTS - FREE TEXT/NARRATIVE: Patient comes emergency department today from the [facility] here in town with complaints of a fall and diarrhea. According to the BLOW OFF WORKER that takes care of this patient on a regular basis the patient has had quite a few loose stools over the past couple of days. He does have some chronic diarrhea on a regular basis which she takes Imodium for. Really not much more diarrhea than usual. Today when he was in the bathroom he felt a little "woozy" fell striking his head against the wall and fell against the ground. There was no loss conscious. He denies any head neck or back pain. He denies any visual acuity changes. Prior to the fall he does complain of some wooziness but no vertigo chest pain palpitation shortness of breath. He did not pass out. He has had no cough or congestion. No fever no chills. No abdominal pain nausea or vomiting. He has had some diarrhea but this is chronic for him. No hematuria dysuria or urinary frequency. He does have his Covid vaccine. Left Head Pain Score (Numeric/FACES): 3 - Related Data Allergies Allergy/AdvReac Type Severity Reaction Status Date / Time No Known Allergies Allergy Verified 02/09/21 20:21 Home Meds: Home Meds Aspirin [Mane Chewable Aspirin] 81 mg PO DAILY 06/12/14 [History] Meclizine [Antivert] 25 mg PO DAILY 06/12/14 [History] Multivit-Min/FA/Lycopene/Lut [Centrum Silver] 1 tab PO DAILY 06/12/14 [History] Nitroglycerin [Nitrostat] 0.4 mg PO ASDIRECTED PRN 06/12/14 [History] PEG 400/Hypromellose/Glycerin [Eye Drop Tears] 1 drop EYEBOTH DAILY 06/12/14 [History] Simvastatin [Zocor] 40 mg PO BEDTIME 06/12/14 [History] Omeprazole 20 mg PO DAILY 06/18/19 [History] Potassium Chloride [Klor-Con M20] 20 meq PO BID 06/18/19 [History] Sertraline [Zoloft] 25 mg PO DAILY 06/18/19 [History] Past Medical History HEENT History: Reports: Glaucoma Cardiovascular History: Reports: CAD, High Cholesterol, Hypertension Gastrointestinal History: Reports: GI Bleed Genitourinary History: Reports: Chronic Renal Insuffiency Musculoskeletal History: Reports: Arthritis, Fracture Psychiatric History: Reports: Depression Endocrine/Metabolic History: Reports: Other (See Below) Other Endocrine/Metabolic History: neuroendocrine carcinoma of the pancreas Oncologic (Cancer) History: Reports: Pancreatic, Prostate - Past Surgical History GI Surgical History: Reports: EGD Musculoskeletal Surgical History: Reports: Hip Replacement Social & Family History - Family History Family Medical History: No Pertinent Family History - Caffeine Use Caffeine Use: Reports: None - Living Situation & Occupation Living situation: Reports: Single Occupation: Retired ED ROS GENERAL - Review of Systems Review Of Systems: Comprehensive ROS is negative, except as noted in HPI. ED EXAM, HEAD INJURY - Physical Exam Exam: See Below Exam Limited By: No Limitations General Appearance: Alert, WD/WN, No Apparent Distress Head: Normocephalic, Facial Ecchymosis (Patient has some bruising on the left lateral eyebrow. No subcutaneous emphysema bony deformities.). No: Scalp Lacerations, Scalp Swelling, Scalp Abrasions, Scalp Ecchymosis, Scalp Hematoma, Scalp Tenderness, Active Bleeding, Facial Lacerations, Facial Swelling, Sinus Tenderness, Facial Tenderness, Raccoon Eyes Nexus Criteria: Posterior, Midline Cervical Tenderness, Evidence of Intoxication, Altered Level of Consciousness, Focal Neurological Deficit, Painful Distraction Injuries Eyes: Bilateral Eye: EOMI, PERRL Ears: Normal External Exam, Normal TMs Nose: Normal Inspection, Normal Mucousa Throat/Mouth: Normal Inspection, Normal Lips, Normal Teeth, Normal Oropharynx, Normal Voice Neck: Non-Tender, Full Range of Motion, Normal Alignment Respiratory: No Respiratory Distress, Lungs Clear, Normal Breath Sounds, No Accessory Muscle Use, Chest Non-Tender Cardiovascular: Normal Peripheral Pulses, Regular Rate, Rhythm GI/Abdominal Exam: Normal Bowel Sounds, Soft, Non-Tender, No Abnormal Bruit (Male) Exam: Deferred Rectal (Males) Exam: Deferred Back Exam: Normal Inspection, Full Range of Motion Extremities: Normal Inspection, Normal Range of Motion, No Pedal Edema, Normal Capillary Refill Neurologic: export administrator II-XII nml As Tested, No Motor/Sensory Deficits, Alert, Normal Mood/Affect, Oriented x 3 Skin: Normal Color, Warm/Dry - [place] Coma Score Best Eye Response ([place]): (4) Open Spontaneously Best Verbal Response (Sandie): (5) Oriented Best Motor Response (Sandie): (6) Obeys Commands Sandie Total: 15 Course - Vital Signs Last Recorded V/S: Last Vital Signs Temp 98.2 F 02/09/21 19:56 Pulse 80 02/09/21 19:56 Resp 16 02/09/21 19:56 BP 112/54 L 02/09/21 19:56 Pulse Ox 97 02/09/21 19:56 Orthostatic Blood Pressure [ 97/85 Standing] Orthostatic Blood Pressure [ 128/54 Supine] Orthostatic Blood Pressure [ 116/60 Sitting] - Orders/Labs/Meds Orders: Active Orders 24 hr Category Date Time Status CLOSTRIDIUM DIFFICILE TOX RFLX [MREF] Stat Lab 02/09/21 22:06 Ordered CULTURE STOOL [RM] Stat Lab 02/09/21 22:07 Ordered Isolation [COMM] Stat Oth 02/09/21 22:07 Active Peripheral IV Insertion Adult [OM.PC] Stat Ot 02/09/21 19:26 Ordered Labs: Laboratory Tests 02/09/21 02/09/21 02/09/21 Range/Units 19:40 19:40 19:40 WBC 15.7 H (5.0-10.0) 10^3/uL RBC 4.18 L (4.6-6.2) 10^6/uL Hgb 12.7 L (14.0-18.0) g/dL Hct 38.7 L (40.0-54.0) % MCV 92.6 D (80-100) fL MCH 30.4 (27.0-34.0) pg MCHC 32.8 L (33.0-35.0) g/dL Plt Count 220 (150-450) 10^3/uL Neut % (Auto) 90.2 H (42.2-75.2) % Lymph % (Auto) 1.9 L (20.5-50.1) % [place] % (Auto) 7.7 (2-8) % Eos % (Auto) 0.1 L (1.0-3.0) % Baso % (Auto) 0.1 (0.0-1.0) % PT 13.3 H (9.0-12.0) SEC INR 1.3 H (0.9-1.2) APTT 27.2 (22.0-34.0) SEC Sodium 137 (136-145) mmol/L Potassium 3.4 L (3.5-5.1) mmol/L Chloride 101 (98-107) mmol/L Carbon Dioxide 28 (21-32) mmol/L Anion Gap 11.4 (7-13) mEq/L BUN 18 (7-18) mg/dL Creatinine 0.84 (0.70-1.30) mg/dL Est Cr Clr Drug Dosing 45.66 mL/min Estimated GFR (MDRD) > 60 BUN/Creatinine Ratio 21.4 (No establ ref range) Glucose 174 H (70-99) mg/dL Lactic Acid (0.4-2.0) mmol/L Calcium 7.7 L (8.5-10.1) mg/dL Magnesium (1.8-2.4) mg/dL Total Bilirubin 1.2 H (0.2-1.0) mg/dL AST 48 H (15-37) U/L ALT 54 (16-63) U/L Alkaline Phosphatase 468 H (46-116) U/L Troponin I < 0.017 (0.000-0.056) ng/mL C-Reactive Protein 7.5 H (0.0-0.9) mg/dL Total Protein 5.4 L (6.4-8.2) g/dL Albumin 2.4 L (3.4-5.0) g/dL Globulin 3.0 Albumin/Globulin Ratio 0.80 Urine Color (YELLOW) Urine Appearance (CLEAR) Urine pH (5.0-9.0) Ur Specific Jay (1.005-1.030) Urine Protein (NEGATIVE) Urine Glucose (UA) (NEGATIVE) Urine Ketones (NEGATIVE) Urine Occult Blood (NEGATIVE) Urine Nitrite (NEGATIVE) Urine Bilirubin (NEGATIVE) Urine Urobilinogen (0.2-1.0) mg/dL Ur Leukocyte Esterase (NEGATIVE) 02/09/21 02/09/21 02/09/21 Range/Units 19:40 19:40 21:00 WBC (5.0-10.0) 10^3/uL RBC (4.6-6.2) 10^6/uL Hgb (14.0-18.0) g/dL Hct (40.0-54.0) % MCV (80-100) fL MCH (27.0-34.0) pg MCHC (33.0-35.0) g/dL Plt Count (150-450) 10^3/uL Neut % (Auto) (42.2-75.2) % Lymph % (Auto) (20.5-50.1) % [place] % (Auto) (2-8) % Eos % (Auto) (1.0-3.0) % Baso % (Auto) (0.0-1.0) % PT (9.0-12.0) SEC INR (0.9-1.2) APTT (22.0-34.0) SEC Sodium (136-145) mmol/L Potassium (3.5-5.1) mmol/L Chloride (98-107) mmol/L Carbon Dioxide (21-32) mmol/L Anion Gap (7-13) mEq/L BUN (7-18) mg/dL Creatinine (0.70-1.30) mg/dL Est Cr Clr Drug Dosing mL/min Estimated GFR (MDRD) BUN/Creatinine Ratio (No establ ref range) Glucose (70-99) mg/dL Lactic Acid 1.0 (0.4-2.0) mmol/L Calcium (8.5-10.1) mg/dL Magnesium 1.2 L (1.8-2.4) mg/dL Total Bilirubin (0.2-1.0) mg/dL AST (15-37) U/L ALT (16-63) U/L Alkaline Phosphatase (46-116) U/L Troponin I (0.000-0.056) ng/mL C-Reactive Protein (0.0-0.9) mg/dL Total Protein (6.4-8.2) g/dL Albumin (3.4-5.0) g/dL Globulin Albumin/Globulin Ratio Urine Color Yellow (YELLOW) Urine Appearance Clear (CLEAR) Urine pH 5.5 (5.0-9.0) Ur Specific Jay 1.025 (1.005-1.030) Urine Protein Negative (NEGATIVE) Urine Glucose (UA) Negative (NEGATIVE) Urine Ketones Negative (NEGATIVE) Urine Occult Blood Negative (NEGATIVE) Urine Nitrite Negative (NEGATIVE) Urine Bilirubin Negative (NEGATIVE) Urine Urobilinogen 0.2 (0.2-1.0) mg/dL Ur Leukocyte Esterase Negative (NEGATIVE) Meds: Medications Discontinued Medications Generic Name Dose Route Start Last Admin Trade Name Freq PRN Reason Stop Dose Admin Lactated Ringer's 1,000 mls @ 150 mls/hr 02/09/21 20:15 02/09/21 20:10 Ringers, Lactated IV 150 mls/hr ASDIRECTED BLANQUITA Administration Lactated Ringer's 1,000 mls @ 1,000 mls/hr 02/09/21 21:43 Ringers, Lactated IV 02/09/21 22:42 .BOLUS ONE Ondansetron HCl 4 mg 02/09/21 20:04 02/09/21 20:11 Ondansetron 4 Mg/2 Ml Sdv IV 02/09/21 20:05 4 mg ONETIME ONE Administration Potassium Chloride 40 meq 02/09/21 21:57 02/09/21 22:09 Potassium Chloride 10% 20 Meq/15 Ml Soln 15 Ml Ud Cup PO 02/09/21 21:58 40 meq NOW STA Administration Sodium Chloride 10 ml 02/09/21 19:26 02/09/21 20:11 Sodium Chloride 0.9% 10 Ml Syringe FLUSH 10 ml ASDIRECTED PRN Administration Keep Vein Open - Radiology Interpretation Free Text/Narrative:: CT head per radiology no acute intracranial abnormality. - Re-Assessments/Exams Free Text/Narrative Re-Assessment/Exam: 02/10/21 Patient's EKG was unremarkable and unchanged from previous. IV was established LR 250 mill bolus 150 mils an hour. Labs are drawn. CT of the head shows no acute intracranial process. Laboratory evaluation with a elevation his white blood cell count of 15.7, hemoglobin 12.7, platelet count 220. CMP with a potassium of 3.4 creatinine normal at 0.84 BUN 18 glucose 174. Lactic acid 1.0. Troponin less than 0.017. Urinalysis is negative for any acute infectious process. We did complete orthostatic blood pressures which he was not symptomatic but he did have about a 40 point drop in his blood pressure. He was given another 250 mill bolus of fluid. He really feels better and he would like to go home. He was given 40 mEq of oral potassium. His daughter and him would like for him to go home. I feel that this is appropriate at this time. Not sure what is causing his leukocytosis but he has no fever and really otherwise has no other complaints. He does have a history of chronic diarrhea and its not much more than he typically has. He does take Imodium for this chronically for his diarrhea. He has not been on any antibiotics recently. We will discharge him home at this time and have him collect a stool culture whenever they are able to ensure that he does not have any infectious process for his diarrhea. Would like him to follow-up in the clinic in the next couple of days for recheck with his elevated white blood cell count and ensure that he is improving. Sooner if worse. Discharge structures as below are explained to the patient and his daughter they are comfortable with this plan and his questions were answered. After the patient was discharged and I was completing his chart and noted that his magnesium came back after the patient was discharged. His magnesium is quite low at 1.2. I will contact the assisted living center and start him on oral magnesium supplementation and have him recheck in the clinic. The nursing staff contacted the assisted living to ensure this was taken care of. Departure - Departure Time of Disposition: 22:00 Disposition: Home, Self-Care Clinical Impression: Dehydration, Hypokalemia, Hypomagnesemia Fall Qualifiers: Encounter type: initial encounter Qualified Code(s): W19.XXXA - Unspecified fall, initial encounter Diarrhea Qualifiers: Diarrhea type: unspecified type Qualified Code(s): R19.7 - Diarrhea, unspecified Leukocytosis Qualifiers: Leukocytosis type: other Qualified Code(s): D72.828 - Other elevated white blood cell count - Discharge Information Instructions: Facial or Scalp Contusion, Dift-ci-Glwl, Chronic Diarrhea, Dehydration, Elderly, [id number] Referrals: PCP,None [Primary Care Provider] - Forms: ED Department Discharge Additional Instructions: Home tonight. Make sure and push oral fluids over the next few days especially electrolyte containing materials such as gatorade and or powerade. When you have diarrhea please collect a sample either bring in to the ED lab or place in fridge till the morning and return it to the hospital. Recheck with PCP on wednesday sooner if any problems or issues. Continue with previous medications. After discharge the assisted living center was notified that there is a prescription for magnesium oxide, we will do 400 mg mag oxide daily for a week and have him recheck in the clinic. Sepsis Event Note (ED) - Focused Exam Vital Signs: Vital Signs Temp Pulse Resp BP Pulse Ox 02/09/21 19:56 98.2 F 80 16 112/54 L 97 - My Orders Last 24 Hours: My Active Orders 02/09/21 19:26 Peripheral IV Insertion Adult [OM.PC] Stat 02/09/21 22:06 CLOSTRIDIUM DIFFICILE TOX RFLX [MREF] Stat 02/09/21 22:07 CULTURE STOOL [RM] Stat Isolation [COMM] Stat - Assessment/Plan Last 24 Hours: My Active Orders 02/09/21 19:26 Peripheral IV Insertion Adult [OM.PC] Stat 02/09/21 22:06 CLOSTRIDIUM DIFFICILE TOX RFLX [MREF] Stat 02/09/21 22:07 CULTURE STOOL [RM] Stat Isolation [COMM] Stat
--- NOTE | 2021-02-09 19:50 | PCM.EKG ---
#1 Interpretation EKG Date: 02/09/21 Time: 19:43 Rhythm: NSR Rate (Beats/Min): 97 [place]: Normal P-Wave: Present QRS: Normal ST-T: Normal QT: Normal Comparison: No Change
[2021-02-09 19:57] VITALS: BP 112/54; PULSE 80
[2021-02-09] MEDS ORDERED: Ondansetron 4 MG/2 ML SDV IV ONE (20:04)
[2021-02-09] MEDS ORDERED: Lactated Ringers 1,000 ML IV SCH (20:15)
--- NOTE | 2021-02-09 20:18 | CT ---
PROCEDURE INFORMATION: Exam: CT Head Without Contrast Exam date and time: 02/09/2021 8:00 PM Age: 85 years old Clinical indication: Other: Fall/pain; Additional info: Fall hit head vomiting TECHNIQUE: Imaging protocol: Computed tomography of the head without contrast. Radiation optimization: All CT scans at this facility use at least one of these dose optimization techniques: automated exposure control; mA and/or kV adjustment per patient size (includes targeted exams where dose is matched to clinical indication); or iterative reconstruction. COMPARISON: CT Head wo Cont 09/07/2019 8:03 PM FINDINGS: Un Brain: Unremarkable for age. No hemorrhage. Moderate cortical atrophy with chronic white matter ischemic change. No mass effect. No evidence large territory infarct. Prominent calcification of the vertebral and basilar arteries . 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 Cerebral ventricles: No ventriculomegaly. Bones/joints: Unremarkable. No acute fracture. Paranasal sinuses: Small air-fluid level in the right maxillary sinus. Mastoid air cells: Visualized mastoid air cells are well aerated. Soft tissues: Unremarkable. IMPRESSION: No acute intracranial abnormality.
[2021-02-09 20:23] LABS: PTT,PARTIAL THROMBOPLSTIN TIME 27.2 SEC (22.0-34.0)
[2021-02-09 20:30] LABS: ANION GAP 11.4 mEq/L (7-13); CHLORIDE,CL 101 mmol/L (98-107); SODIUM,NA 137 mmol/L (136-145)
[2021-02-09] MEDS ORDERED: Lactated Ringers 1,000 ML IV ONE (21:43)
[2021-02-09] MEDS ORDERED: Potassium Chloride 10% 20 MEQ/15 ML Soln 15 ML UD Cup PO STA (21:57)
== END 2021-02-09 22:25 | disposition home or self-care (01) ==
LOC: DL.ED 19:10
DX: S00.12XA Contusion of left eyelid and periocular area, initial encounter (principal); E86.0 Dehydration; D72.828 Other elevated white blood cell count; E83.42 Hypomagnesemia; E87.6 Hypokalemia; F03.90 Unspecified dementia, unspecified severity, without behavioral disturbance, psychotic disturbance, mood disturbance, and anxiety; R19.7 Diarrhea, unspecified; I25.10 Atherosclerotic heart disease of native coronary artery without angina pectoris; E78.00 Pure hypercholesterolemia, unspecified; I12.9 Hypertensive chronic kidney disease with stage 1 through stage 4 chronic kidney disease, or unspecified chronic kidney disease; N18.9 Chronic kidney disease, unspecified; M19.90 Unspecified osteoarthritis, unspecified site; Z79.82 Long term (current) use of aspirin; Z79.899 Other long term (current) drug therapy
CPT/HCPCS: 36415; 70450; 80053; 81003; 83605; 83735; 84484; 85025; 85610; 85730; 86140; 87046; 93005; 93010; 96374; 99284; 99284-25; A9270-GY; J2405; J7120